=== PATIENT | male | born 1990 | race Caucasian/White ===

== ENCOUNTER 2018-09-23 23:00 | Inpatient (IN) | payer OTHER ==
[~2018-09-23] VITALS: Ht 175.3 cm; Wt 70.3 kg
[2018-09-23 23:35] LABS: BASO # 0.1 (0.0-0.2); BASO % 0.4 % (0.0-2.0); GRAN # 10.7 (1.4-6.5); GRAN % 85.4 % (42.2-75.2); HEMATOCRIT 44.5 % (42.0-52.0); HEMOGLOBIN 16.4 g/dl (13.5-18.0); LYMPH # 0.8 (1.2-3.4); LYMPH % 6.1 % (20.0-51.0); MEAN CELL VOLUME 96 fl (80.0-100.0); MEAN CORPUSCULAR HEMOGLOBIN 35 pg (27.0-31.0); MEAN CORPUSCULAR HGB CONC 37 g/dl (33.0-37.0); MEAN PLATELET VOLUME 9.8 fl (7.4-10.4); MONO % 7.8 % (1.7-9.3); PLATELET COUNT 216 K/mm3 (130-400); RED BLOOD COUNT 4.64 M/mm3 (4.20-5.60); REDCELL DISTRIBUTION WIDTH-CV 11.6 % (11.5-14.5)
[2018-09-24] VITALS (12 sets, daily range): BP systolic 125–151; BP diastolic 87–97; PULSE 60–112; TEMP 97.8–99.6
[2018-09-24 00:04] LABS: ALANINE AMINOTRANSFERASE 114 U/L (21-72); ALBUMIN 4.9 gm/dL (3.5-5.0); ALCOHOL(ethanol),MEDICAL 110 mg/dL; ALKALINE PHOSPHATASE 108 U/L (50-136); ANION GAP 18 mmol/L (7-16); AST,SGOT 129 U/L (15-37); BILIRUBIN,TOTAL 0.6 mg/dL (0.0-1.0); BLOOD UREA NITROGEN 7 mg/dL (9-20); C-REACTIVE PROTEIN < 0.5 mg/dL (0.0-0.9); CALCIUM 9.6 mg/dL (8.4-10.2); CARBON DIOXIDE 22 mmol/L (22-30); CHLORIDE 100 mmol/L (98-107); CREATININE, serum 0.68 mg/dL (0.66-1.25); GLUCOSE 160 mg/dL (74-106); POTASSIUM 3.8 mmol/L (3.4-5.0); SODIUM 141 mmol/L (137-145); TOTAL PROTEIN 8.6 gm/dL (6.4-8.2)
[2018-09-24 00:20] LABS: LIPASE 17770 U/L (23-300)
[2018-09-24 01:03] LABS: PROTHROMBIN TIME 10.8 SECONDS (9.7-12.8)
[2018-09-24 01:08] LABS: LACTATE DEHYDROGENASE 640 U/L (313-618); MAGNESIUM 1.6 mg/dL (1.6-2.3); PHOSPHOROUS 4.6 mg/dL (2.5-4.5)
[2018-09-24 01:27] LABS: AMYLASE 1480 U/L (30-110)
--- NOTE | 2018-09-24 01:45 | NUR ---
Patient arrived to room via wheelchair from ED. Friend at bedside. Assessment complete. Lungs clear. Heart sounds normal. Bowel active. Pulses strong throughout. Reports 7/10 ABD pain and nausea. Will provide medication once ordered. Orientated patient to medical floor and room. Denies needs at this time. Call light in reach.
[2018-09-24 01:59] LABS: CHOLESTEROL 242 mg/dL (120-200); HDL CHOLESTEROL > 110 mg/dL; LDL CHOLESTEROL 116 mg/dL; TRIGLYCERIDE 79 mg/dL
--- NOTE | 2018-09-24 02:20 | NUR ---
Provided patient with PRN phenergan and dilaudid. Denies needs at this time. Will monitor.
--- NOTE | 2018-09-24 05:00 | NUR ---
Reports pain 8/10 at this time. Requested PRN "pain and nausea medication." Provided to patient. Denies other needs at this time. Call light in reach.
--- NOTE | 2018-09-24 06:03 | NUR ---
Uneventful night. Pain control and medications for nausea. Denies needs at this time. Call light in reach.
[2018-09-24 07:08] LABS: BASO % 0.2 % (0.0-2.0); GRAN % 86.8 % (42.2-75.2); LYMPH # 0.3 (1.2-3.4); LYMPH % 3.6 % (20.0-51.0); MEAN CELL VOLUME 98 fl (80.0-100.0); MEAN CORPUSCULAR HEMOGLOBIN 36 pg (27.0-31.0); MEAN CORPUSCULAR HGB CONC 36 g/dl (33.0-37.0); MEAN PLATELET VOLUME 9.9 fl (7.4-10.4); MONO # 0.8 (0.1-0.6); PLATELET COUNT 209 K/mm3 (130-400); RED BLOOD COUNT 4.48 M/mm3 (4.20-5.60); REDCELL DISTRIBUTION WIDTH-CV 11.7 % (11.5-14.5)
[2018-09-24 07:23] LABS: COLLECTION METHOD CLEAN CATCH
[2018-09-24 07:30] LABS: PH 6 (5-8); SQUAMOUS EPITHELIAL None Seen /hpf; URINE APPEARANCE Clear; URINE BACTERIA None Seen /hpf; URINE BILIRUBIN Negative (NEGATIVE); URINE BLOOD Negative (NEGATIVE); URINE COLOR Amber; URINE GLUCOSE Negative (NEGATIVE); URINE KETONE 1+ (NEGATIVE); URINE LEUKOCYTE ESTERASE Negative (NEGATIVE); URINE NITRATE Negative (NEGATIVE); URINE PROTEIN(semi-quant) Negative (NEGATIVE); URINE RBC 0-2 /hpf; URINE UROBILINOGEN Negative (NEGATIVE)
[2018-09-24 07:31] LABS: ALBUMIN 4.3 gm/dL (3.5-5.0); BILIRUBIN,TOTAL 0.8 mg/dL (0.0-1.0); CALCIUM 8.4 mg/dL (8.4-10.2); CREATININE, serum 0.64 mg/dL (0.66-1.25); POTASSIUM 4.8 mmol/L (3.4-5.0); TOTAL PROTEIN 7.4 gm/dL (6.4-8.2)
--- NOTE | 2018-09-24 08:00 | NUR ---
PT IN BED WITH HOB AT 45 DEGREE ANGLE. PT ADVISES THAT PAIN IS AT 8/10 THAT IS SHARP AND CONSTANT. PT DENIES, ANXIETY, N/V, OR INSOMNIA. NO NEEDS AT THIS TIME. PT AWARE THAT HE IS NPO, BUT PT DOES RINSE MOUTH WITH WATER AND SPITS IT OUT. CALL LIGHT WITHIN REACH.
[2018-09-24 08:06] LABS: TRICYCLIC ANTIDEPRESS URINE NEGATIVE
--- NOTE | 2018-09-24 11:13 | NUR ---
FAUSTINA and SW student met with the patient to discuss discharge plan. 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 He reports independence with ADLs and does not use any DME. The patient does not have a PCP and he was not interested in being set up with one or at a clinic. He reports he utilizes the [facility] for meds, if needed, and states he has no difficulties obtaining his meds. The patient is down as self pay. The patient reports that his insurance renewed on August 26 and believes that it is [employer]. He states that he is going to ask his parents for the information. FAUSTINA contacted and informed Luiza with financial counseling. SW discussed the patient's alcohol use. The patient reports that he is not interested in any inpatient or outpatient treatment at this time. He states that this was a wake up call and plans to turn things around. The patient plans to return home with his girlfriend upon discharge. SW to continue to follow.
--- NOTE | 2018-09-24 12:46 | NUR ---
PT ADVISES THAT HE IS STARTING TO FEEL ANXIETY AND HAVING TREMORS. PT SCORED 4 ON DETOX ASSESSMENT, GAVE 0.5 MG OF ATIVAN IV. PT ALSO ADVISES THAT HE IS STILL HAVING SEVERE PAIN RATED AT A 7/10 THAT IS SHARP AND CONSTANT, DILAUDID GIVEN FOR PAIN. NO FURTHER NEEDS AT THIS TIME, CALL LIGHT WITHIN REACH.
--- NOTE | 2018-09-24 13:08 | NUR ---
Talked with pt concerning drinking and seeking help with AA/counseling/INPT tx. Encouraged pt to voice any needs concerning these options that we can help with. Pt stated " I started drinking with friends while we played games and hung out". Spoke with pt concerning the opportunity with above tools to learn new coping behaviours and people available to help pt with this.
--- NOTE | 2018-09-24 15:33 | NUR ---
GAVE PT A WARM PACK. PT HAD ADVISED THAT HE DID GET SOME SLEEP, BUT PAIN WAS STARTING AGAIN. PT HAD NO ANXIETY BUT STILL HAD SOME VISIBLE TREMORS. GAVE PAIN MEDICATION FOR PAIN, BUT DID NOT SCORE TO GET ANY ATIVAN. PT HAS CALL LIGHT WITHIN REACH.
--- NOTE | 2018-09-24 15:59 | NUR ---
PT OFFERED TO GET NICOTINE PATCH, BUT PT DECLINED AND ADVISED THAT HE SMOKES THE ELECTRONIC CIGARETTES. PT IS AWARE THAT HE CANNOT USE THE ELECTRONIC CIGARETTES WHILE IN THE HOSPITAL. NO NEEDS AT THIS TIME, CALL LIGHT WITHIN REACH.
--- NOTE | 2018-09-24 16:41 | NUR ---
REPORT GIVEN TO ENEDINA IVEY.
--- NOTE | 2018-09-24 19:30 | NUR ---
Resting in bed. Assessment complete. Alert and orientated. Lungs clear. Heart sounds normal. Bowels active. No edema noted. Reports 2/10 ABD pain at this time worse with movement. Denies needs at this time. Call light in reach. Will monitor.
--- NOTE | 2018-09-24 20:18 | NUR ---
Telemetry called stating patient heart rate in 120s. Upon assessment patient in restroom having bowel movement. Rating pain 6/10 in ABD. Once returned to bed heart rate now in 90s. Denies any symptoms besides increased pain with movement. Provided PRN dilaudid. Denies other needs at this time. Call light in reach.
[2018-09-25] VITALS (11 sets, daily range): BP systolic 118–151; BP diastolic 74–99; PULSE 84–120; TEMP 97.3–100.2
--- NOTE | 2018-09-25 00:13 | NUR ---
Resting in bed. Reports "mild pain" in ABD increasing with movement. Denies needs. Call light in reach.
[2018-09-25 06:21] LABS: BASO % 0.3 % (0.0-2.0); EOS % 0.1 % (0-4.0); GRAN # 8.6 (1.4-6.5); GRAN % 80.1 % (42.2-75.2); HEMATOCRIT 42.9 % (42.0-52.0); HEMOGLOBIN 15.2 g/dl (13.5-18.0); LYMPH # 1.1 (1.2-3.4); LYMPH % 10.1 % (20.0-51.0); MEAN CELL VOLUME 99 fl (80.0-100.0); MEAN CORPUSCULAR HEMOGLOBIN 35 pg (27.0-31.0); MEAN CORPUSCULAR HGB CONC 35 g/dl (33.0-37.0); MEAN PLATELET VOLUME 10.5 fl (7.4-10.4); MONO % 9.1 % (1.7-9.3); PLATELET COUNT 164 K/mm3 (130-400); RED BLOOD COUNT 4.32 M/mm3 (4.20-5.60); REDCELL DISTRIBUTION WIDTH-CV 11.9 % (11.5-14.5)
[2018-09-25 06:38] LABS: ALBUMIN 3.5 gm/dL (3.5-5.0); BILIRUBIN,TOTAL 0.9 mg/dL (0.0-1.0); CALCIUM 7.8 mg/dL (8.4-10.2); CREATININE, serum 0.66 mg/dL (0.66-1.25); POTASSIUM 3.5 mmol/L (3.4-5.0); TOTAL PROTEIN 6.3 gm/dL (6.4-8.2)
--- NOTE | 2018-09-25 07:12 | NUR ---
Resting in bed this AM. Uneventful night. Report given to UCHE Munoz.
--- NOTE | 2018-09-25 07:27 | NUR ---
Patient is resting in bed, head slightly elevated. Requested pain medication for abdominal pain at a 3-4/10. Reports the pain worsens with activity. No further needs voiced. Call light is within reach.
--- NOTE | 2018-09-25 09:12 | NUR ---
Initial visit; Patient thanked Fixture Maker for stopping though declined spiritual care. Fixture Maker wished him a good recovery.
--- NOTE | 2018-09-25 12:28 | NUR ---
Patient declined to take oral potassium, stated his stomach probably couldn't handle it right now.
--- NOTE | 2018-09-25 13:34 | NUR ---
IV site changed, patient reported that it was sore and nursing noted site to be slighly firm with a small amount of pinkened skin to area. IV discontinued and replaced.
--- NOTE | 2018-09-25 18:26 | NUR ---
Patient sitting up in bed watching movies on his tablet. Voices no concerns. Call light is within reach.
--- NOTE | 2018-09-25 20:00 | NUR ---
PT IN BED WITH HOB ELEVATED TO 45 DEGREE ANGLE, A/O X4. PT ADVISES THAT PAIN IS AT A 1 TO 2/10, BUT PAIN IS MORE SEVERE WHEN HE MOVES. PT ALSO ADVISES THAT HE CANNOT TAKE DEEP BREATHS BECAUSE OF THE PAIN. NO NEEDS AT THIS TIME CALL LIGHT WITHIN REACH.
[2018-09-26] VITALS (11 sets, daily range): BP systolic 107–142; BP diastolic 68–88; PULSE 100–131; TEMP 98.7–102.2
--- NOTE | 2018-09-26 02:13 | NUR ---
PT PAIN HAS IMPROVED AND PT HAS ONLY BEEN SCORING A 2 ON DETOX ASSESSMENT. PT SLEEPING/RESTING AT THIS TIME WITH RESP EVEN AND UNLABORED. CALL LIGHT WITHIN REACH.
[2018-09-26 05:59] LABS: BASO % 0.4 % (0.0-2.0); EOS % 0.4 % (0-4.0); GRAN # 9.4 (1.4-6.5); GRAN % 83.6 % (42.2-75.2); HEMATOCRIT 44.3 % (42.0-52.0); HEMOGLOBIN 15.6 g/dl (13.5-18.0); LYMPH # 0.7 (1.2-3.4); LYMPH % 6.3 % (20.0-51.0); MEAN CELL VOLUME 99 fl (80.0-100.0); MEAN CORPUSCULAR HEMOGLOBIN 35 pg (27.0-31.0); MEAN CORPUSCULAR HGB CONC 35 g/dl (33.0-37.0); MEAN PLATELET VOLUME 10.1 fl (7.4-10.4); MONO % 8.9 % (1.7-9.3); PLATELET COUNT 168 K/mm3 (130-400); RED BLOOD COUNT 4.48 M/mm3 (4.20-5.60); REDCELL DISTRIBUTION WIDTH-CV 11.7 % (11.5-14.5)
[2018-09-26 06:14] LABS: CALCIUM 8.2 mg/dL (8.4-10.2); CREATININE, serum 0.76 mg/dL (0.66-1.25); MAGNESIUM 2.3 mg/dL (1.6-2.3)
--- NOTE | 2018-09-26 07:15 | NUR ---
Sleeping soundly at bedside shift report. No signs of pain at this time. The call light and bed alarm are in place.
--- NOTE | 2018-09-26 07:19 | NUR ---
Recieved report, went to see patient, noted to be in bed with head and feet elevated. No complaints voiced at this time. Call light is within reach.
--- NOTE | 2018-09-26 07:29 | NUR ---
REPORT GIVEN TO NETTA IVEY AND NELLA IVEY.
--- NOTE | 2018-09-26 17:55 | NUR ---
Patient was laying in bed on his left side. Staff woke patient and he verbalized that he was very sore. He was noted to have head of bed up and curled in a ball with head group home down the head of the bed. Did experience some relief after repositioning but did request PRN pain medication which was administered. Currently sitting up in bed with evening meal. Call light is within reach.
--- NOTE | 2018-09-26 19:41 | NUR ---
PT IN BED WITH HOB AT 60 DEGREE ANGLE, WATCHING TV AND ON PHONE. PT ADVISES THAT HE IS DIAPHORETIC, AND NOT REALLY ANXIETY. BACK IS DIAPHORETIC ON ASSESSMENT, NO TREMORS NOTED. PT HAS PAIN AT 2/10, WAS GIVEN PAIN MEDICATION EARLIER TODAY. PT IS HOPEFUL OF DISCHARGING HOME TOMORROW. CALL LIGHT WITHIN REACH. PT SCORED 5 ON DETOX.
[2018-09-27] VITALS (7 sets, daily range): BP systolic 105–123; BP diastolic 64–78; PULSE 80–118; TEMP 98.4–101
--- NOTE | 2018-09-27 03:56 | NUR ---
PT AWAKENS EASILY FOR DETOX SCREENING. PT VERY PLEASANT AND COOPERATIVE. PT HAD SCORED 4. PT WAS GIVEN ATIVAN 1 MG PO FOR SCORE. PT ADVISES THAT HE IS WANTING TO TRY AND GET BACK TO SLEEP. PT AMBULATES IN ROOM AND GAIT IS STEADY. NO NEEDS AT THIS TIME CALL LIGHT WITHIN REACH.
[2018-09-27 07:20] LABS: BASO % 0.4 % (0.0-2.0); EOS % 0.4 % (0-4.0); GRAN # 9.4 (1.4-6.5); GRAN % 83.6 % (42.2-75.2); HEMATOCRIT 39.3 % (42.0-52.0); LYMPH # 0.7 (1.2-3.4); MEAN CELL VOLUME 99 fl (80.0-100.0); MEAN CORPUSCULAR HEMOGLOBIN 35 pg (27.0-31.0); MEAN CORPUSCULAR HGB CONC 36 g/dl (33.0-37.0); MEAN PLATELET VOLUME 10.5 fl (7.4-10.4); MONO % 9.2 % (1.7-9.3); PLATELET COUNT 194 K/mm3 (130-400); RED BLOOD COUNT 3.98 M/mm3 (4.20-5.60); REDCELL DISTRIBUTION WIDTH-CV 11.4 % (11.5-14.5)
[2018-09-27 07:26] LABS: CALCIUM 8.4 mg/dL (8.4-10.2); CREATININE, serum 0.67 mg/dL (0.66-1.25); MAGNESIUM 2.1 mg/dL (1.6-2.3); POTASSIUM 3.9 mmol/L (3.4-5.0)
--- NOTE | 2018-09-27 07:58 | NUR ---
Pt assessment complete. Pt is sitting up in bed watching television, he is A/O x3. His breathing is even and unlabored on RA. Pt denies any SOB. Abdominal pain currently 10/05, no N/V. Pt reports passing gas, but currently no BM today. Pt states he feels much better today, tolerating clear liquids without issues. Denies further needs, call light within reach.
--- NOTE | 2018-09-27 11:23 | NUR ---
Pt reports tolerating clears, reports having a BM.
--- NOTE | 2018-09-27 15:26 | NUR ---
Pt tolerating macaroni and cheese without complications. No N/V or pain currently.
[2018-09-27] MEDS ORDERED: PRILOTC PO (16:14)
[2018-09-27] MEDS ORDERED: ZOFRAN 4MG T4 MG/TAB PO (16:14)
[2018-09-27] MEDS ORDERED: NORCO 325 MG-51 TAB PO (16:15)
--- NOTE | 2018-09-27 16:57 | NUR ---
Discharge instructions reviewed with patient, all questions answered at this time. IV to LFA dc'd, catheter tip intact.
--- NOTE | 2018-09-27 17:50 | NUR ---
Pt walked out of facility at this time.
== END 2018-09-27 17:50 | disposition home or self-care (01) | DRG 439 ==
LOC: COL.ER 23:00 → MEDICAL 09-24 00:53 → EDBEDREQ 09-24 01:20 → MEDICAL 09-24 06:16
PROVIDERS: Nurse Practitioner; Nurse Practitioner Family; Physician Assistant; ADMIT Internal Medicine
DX: K85.20 Alcohol induced acute pancreatitis without necrosis or infection (principal); E87.2 Acidosis; K86.0 Alcohol-induced chronic pancreatitis; F12.10 Cannabis abuse, uncomplicated; F10.229 Alcohol dependence with intoxication, unspecified; Y90.5 Blood alcohol level of 100-119 mg/100 ml; F17.210 Nicotine dependence, cigarettes, uncomplicated; K76.0 Fatty (change of) liver, not elsewhere classified; K70.9 Alcoholic liver disease, unspecified; E87.6 Hypokalemia; E83.42 Hypomagnesemia
CPT/HCPCS: 99222-AI; 99231-AI; 99233-AI; 99239; J1170; J1650; J2060; J2405; J2550; J3411; J3475; J3480; J7030; Q9967

== ENCOUNTER 2021-10-19 22:18 | Inpatient (IN) | payer BC ==
[~2021-10-19] VITALS: Ht 175.3 cm; Wt 64.8 kg
[~2021-10-19 22:18] MED LIST: NORCO 325 MG-51 TAB PO; PRILOTC PO; ZOFRAN 4MG T4 MG/TAB PO
[2021-10-19 23:13] LABS: BASO % 0.4 % (0.0-2.0); EOS % 0.2 % (0.0-4.0); GRAN # 7.8 K/mm3 (1.4-6.5); GRAN % 80.8 % (42.2-75.2); HEMATOCRIT 43.5 % (42.0-52.0); LYMPH # 1.3 K/mm3 (1.2-3.4); LYMPH % 13.4 % (20.0-51.0); MEAN CELL VOLUME 95 fl (80.0-100.0); MEAN CORPUSCULAR HEMOGLOBIN 35 pg (27-31); MEAN CORPUSCULAR HGB CONC 37 g/dl (33.0-37.0); MEAN PLATELET VOLUME 10.2 fl (7.4-10.4); MONO # 0.5 K/mm3 (0.1-0.6); MONO % 4.9 % (1.7-9.3); PLATELET COUNT 241 K/mm3 (130-400); REDCELL DISTRIBUTION WIDTH-CV 11.6 % (11.5-14.5)
[2021-10-19 23:32] LABS: ALBUMIN 4.9 gm/dL (3.5-5.0); BILIRUBIN,TOTAL 1.4 mg/dL (0.2-1.2); C-REACTIVE PROTEIN 0.14 mg/dL (0.00-0.50); CALCIUM 9.6 mg/dL (8.4-10.2); CREATININE, serum 0.8 mg/dL (0.72-1.25); POTASSIUM 3.4 mmol/L (3.5-4.5); TOTAL PROTEIN 8.6 gm/dL (6.2-8.1)
[2021-10-20] VITALS (8 sets, daily range): BP systolic 129–140; BP diastolic 77–92; PULSE 70–82; TEMP 97.5–98.7
[2021-10-20 01:38] LABS: INR 1.1 (0.8-3.0); PROTHROMBIN TIME 11.7 SECONDS (9.7-12.8)
[2021-10-20 01:52] LABS: PHOSPHOROUS 4.4 mg/dL (2.3-4.7)
[2021-10-20 02:08] LABS: CHOLESTEROL RISK RATIO 2.2
[2021-10-20 02:35] LABS: COLLECTION METHOD CLEAN CATCH
[2021-10-20 02:41] LABS: MUCOUS Present (NOT PRESENT); PH 6 (5-8); SQUAMOUS EPITHELIAL None Seen /hpf (0-10); URINE APPEARANCE Clear (CLEAR/HAZY); URINE BACTERIA None Seen /hpf (NONE SEEN); URINE BILIRUBIN Negative (NEGATIVE); URINE BLOOD Negative (NEGATIVE); URINE COLOR Yellow (YELLOW); URINE GLUCOSE Negative (NEGATIVE); URINE KETONE 1+ (NEGATIVE); URINE LEUKOCYTE ESTERASE Negative (NEGATIVE); URINE NITRATE Negative (NEGATIVE); URINE PROTEIN(semi-quant) Negative (NEGATIVE); URINE RBC 0-2 /hpf (0-2); URINE UROBILINOGEN Negative (NEGATIVE)
[2021-10-20 02:59] LABS: TRICYCLIC ANTIDEPRESS URINE NEGATIVE
--- NOTE | 2021-10-20 04:10 | NUR ---
Patient arrived to the unit at 0330 am alert and oriented x 4, VSS, states pain of 9/10, asked for pain and nausea medication. Provided. Receibing banana bag. Able to transfer himself from bed to bed. Assessment completed. continue monitoring.
--- NOTE | 2021-10-20 06:22 | NUR ---
Patient has been rating his pain between 8.5 to 9 out of 10. He is receiving pain med PRN. He is getting NS and potassium. Report will be given to day RN.
[2021-10-20 07:05] LABS: BASO % 0.3 % (0.0-2.0); EOS % 0.1 % (0.0-4.0); GRAN # 7.9 K/mm3 (1.4-6.5); GRAN % 79.5 % (42.2-75.2); HEMATOCRIT 41.4 % (42.0-52.0); HEMOGLOBIN 14.3 g/dl (13.5-18.0); LYMPH # 1.2 K/mm3 (1.2-3.4); LYMPH % 12.6 % (20.0-51.0); MEAN CELL VOLUME 99 fl (80.0-100.0); MEAN CORPUSCULAR HEMOGLOBIN 34 pg (27-31); MEAN CORPUSCULAR HGB CONC 35 g/dl (33.0-37.0); MEAN PLATELET VOLUME 10.2 fl (7.4-10.4); MONO # 0.7 K/mm3 (0.1-0.6); MONO % 7.2 % (1.7-9.3); PLATELET COUNT 225 K/mm3 (130-400); REDCELL DISTRIBUTION WIDTH-CV 11.8 % (11.5-14.5)
[2021-10-20 07:16] LABS: ALBUMIN 4.2 gm/dL (3.5-5.0); BILIRUBIN,TOTAL 1.7 mg/dL (0.2-1.2); CALCIUM 7.8 mg/dL (8.4-10.2); CREATININE, serum 0.65 mg/dL (0.72-1.25); TOTAL PROTEIN 7.2 gm/dL (6.2-8.1)
--- NOTE | 2021-10-20 08:00 | NUR ---
PT PLEASANT, AOX4, TREMORS PRESENT, PT DENIES SLEEP OVERNIGHT, PT REPORTS PAIN 5/10, MEDICATIONS GIVEN ALONG WITH PAIN MEDICATION, ASSESSMENT PERFORMED, NO OTHER NEEDS
--- NOTE | 2021-10-20 09:50 | NUR ---
Initial visit; Patient thanked Neuropsychologist for offering God's blessings and keeping him in her prayers.
--- NOTE | 2021-10-20 14:17 | NUR ---
FAUSTINA met with the patient to discuss discharge plan. The patient lives in [place] with his girlfriend, Clara Matthews (ph#[phone]). He reports independence with ADLs and does not have any DME. 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 The patient does not have a PCP, but he was interested in the hospital getting him established with one. He receives his medications from [facility]. The patient does not have a DPOA-HC, but he was interested in obtaining a form. FAUSTINA provided. The patient is not and does not have any children. His parents: Dash and Leticia Barraza (ph#[phone]), are his next of kin. The patient plans on returning home with his girlfriend upon discharge. FAUSTINA addressed the patient's alcohol use. He has been drinking a pint of vodka daily. FAUSTINA discussed treatment. The patient reports that his girlfriend is going to help him quit. FAUSTINA offered a list of local alcohol treatment resources. The patient declined. He states that he already familiar with the local resources. FAUSTINA contacted Eula at [facility]. Eula reports that they are taking new patients and the patient's insurance, [facility]. Eula states that they require new patient's to fill out their two forms online. Once those are completed, the patient can call them to set up an appointment. Eula took the patient's information, so that they would have him down in their system. FAUSTINA informed the patient and provided him with instructions to follow to fill out the forms online and then contact [facility]. The patient verbalized understanding and was agreeable to do this. FAUSTINA updated the PA. *Discharge plan: home with girlfriend*
[2021-10-21] VITALS (7 sets, daily range): BP systolic 115–135; BP diastolic 69–83; PULSE 74–92; TEMP 98.1–99.1
--- NOTE | 2021-10-21 02:00 | NUR ---
CIWA SCORE UP TO 5, PT UNABLE TO SLEEP, 0.5MG IV ATIVAN GIVEN.
--- NOTE | 2021-10-21 05:29 | NUR ---
pt reports able to sleep a bit after ativan given @ 0200 for CIWA of 5, back to 3-4 now, dilaudid given x3 this shift for abdominal pain 02/02. IVF infusing @125cc/hr per piv, taking small amt of clear liquids, no N/V reported. up ad lisbet in room.
[2021-10-21 06:48] LABS: BASO % 0.3 % (0.0-2.0); EOS # 0.2 K/mm3 (0.0-0.7); EOS % 3.3 % (0.0-4.0); GRAN # 4.3 K/mm3 (1.4-6.5); GRAN % 61.2 % (42.2-75.2); HEMATOCRIT 38.1 % (42.0-52.0); HEMOGLOBIN 13.5 g/dl (13.5-18.0); LYMPH # 1.8 K/mm3 (1.2-3.4); LYMPH % 25.6 % (20.0-51.0); MEAN CELL VOLUME 98 fl (80.0-100.0); MEAN CORPUSCULAR HEMOGLOBIN 35 pg (27-31); MEAN CORPUSCULAR HGB CONC 35 g/dl (33.0-37.0); MEAN PLATELET VOLUME 10.3 fl (7.4-10.4); MONO # 0.7 K/mm3 (0.1-0.6); MONO % 9.5 % (1.7-9.3); PLATELET COUNT 163 K/mm3 (130-400); REDCELL DISTRIBUTION WIDTH-CV 11.4 % (11.5-14.5)
[2021-10-21 07:15] LABS: CALCIUM 8.1 mg/dL (8.4-10.2); CREATININE, serum 0.64 mg/dL (0.72-1.25); POTASSIUM 3.5 mmol/L (3.5-4.5)
--- NOTE | 2021-10-21 09:59 | NUR ---
PT SLEEPING IN ROOM, ATTEMPTING TO LET PT REST, PT ONLY RECIEVED A FEW HOURS SLEEP OVERNIGHT
--- NOTE | 2021-10-21 11:14 | NUR ---
First visit from the rear admiral. No needs right now.
--- NOTE | 2021-10-21 12:10 | NUR ---
PT PLEASANT, AOX4, REPORTS PAIN 6/10 IN ABD PRESSURE, PAIN MEDICATION GIVEN ALONG WITH MORNING MEDICATIONS, ASSESSMENT PERFORMED, REQUESTED ORAL PAIN MEDICATION FROM DR. ELDRIDGE.
--- NOTE | 2021-10-21 18:10 | NUR ---
PT PLEASANT, AOX4, TREMORS FELT BY OBSERVOR, TRIALING NORCO, PT STATED "IT DIDN'T FEEL LIKE IT DID ANYTHING" AND SECOND PILL GVIEN. NO OTHERN EEDS
[2021-10-22 03:44] VITALS: BP 133/87; PULSE 55; TEMP 97.4
[2021-10-22 07:32] LABS: CALCIUM 8.9 mg/dL (8.4-10.2); CREATININE, serum 0.65 mg/dL (0.72-1.25); POTASSIUM 4.2 mmol/L (3.5-4.5)
--- NOTE | 2021-10-22 07:45 | NUR ---
IVF infusing @75cc/hr, pt requested pain meds x2, ativan given for CIWA of 6 @0400 back down to 2 afterwards. pt independent in room. pt wants to go home today as GF is also in hospital and no one available to take care of pets at home.
[2021-10-22 07:46] LABS: BASO % 0.6 % (0.0-2.0); EOS # 0.5 K/mm3 (0.0-0.7); EOS % 6.6 % (0.0-4.0); GRAN # 4.3 K/mm3 (1.4-6.5); GRAN % 63.1 % (42.2-75.2); HEMATOCRIT 39.5 % (42.0-52.0); HEMOGLOBIN 14.1 g/dl (13.5-18.0); LYMPH # 1.4 K/mm3 (1.2-3.4); LYMPH % 20.1 % (20.0-51.0); MEAN CELL VOLUME 97 fl (80.0-100.0); MEAN CORPUSCULAR HEMOGLOBIN 35 pg (27-31); MEAN CORPUSCULAR HGB CONC 36 g/dl (33.0-37.0); MEAN PLATELET VOLUME 10.8 fl (7.4-10.4); MONO # 0.6 K/mm3 (0.1-0.6); MONO % 9.2 % (1.7-9.3); PLATELET COUNT 162 K/mm3 (130-400); RED BLOOD COUNT 4.09 M/mm3 (4.20-5.60); REDCELL DISTRIBUTION WIDTH-CV 11.3 % (11.5-14.5)
[2021-10-22 08:04] VITALS: BP 116/68; PULSE 96; TEMP 98
--- NOTE | 2021-10-22 08:30 | NUR ---
PT PLEASANT AOX4 REPORTS "BARELY ANY PAIN", ASKED TO ADVANCE DIET, DR. ELDRIDGE NOTIFIED AND GENERAL DIET ORDERED. PT TOLERATING GENERAL DIET WELL, ASSESSMENT PERFORMED, MEDICATIONS GIVEN, NO OTHER NEEDS,
[2021-10-22 10:01] VITALS: BP 107/58; PULSE 84; TEMP 98
[2021-10-22 11:44] VITALS: BP 122/62; PULSE 80; TEMP 98.2
--- NOTE | 2021-10-22 14:00 | NUR ---
DISHCARGE EDUCATION PROVIDED, IV REMOVED, PT RECIEVED INFORMATION FROM GOLF COACH ABOUT OBTAINING NEW PCP, PT DRESSED, TELE REMOVED, WANTING TO VISIT GIRLFRIEND IN ANOTHER ROOM ON THE FLOOR, PT THEN ESCORTED OUT OF BUILDING
== END 2021-10-22 14:00 | disposition home or self-care (01) | DRG 440 ==
LOC: COL.ER 22:18 → MEDICAL 10-20 01:23
PROVIDERS: Nurse Practitioner; Nurse Practitioner Family; Physician Assistant; Student in an Organized Health Care Education/Training Program; ADMIT Internal Medicine
DX: K85.20 Alcohol induced acute pancreatitis without necrosis or infection (principal); F17.210 Nicotine dependence, cigarettes, uncomplicated; F10.229 Alcohol dependence with intoxication, unspecified; K76.0 Fatty (change of) liver, not elsewhere classified; E87.6 Hypokalemia; Y90.6 Blood alcohol level of 120-199 mg/100 ml
CPT/HCPCS: 99222-AI; 99232-AI; 99239; J1170; J1650; J2060; J2405; J2550; J3411; J3475; J3480; J7030; Q9967